=== PATIENT | female | born 1980 | race Caucasian/White ===

== ENCOUNTER → 2018-07-27 | Outpatient (CLI) | payer MEDICARE, OTHER ==
--- NOTE | 2018-08-06 10:10 | MM ---
Reason for exam: screening (asymptomatic). History: Family history of breast cancer in 3 maternal aunts. MG 3D Screening Mammo W/Cad Bilateral CC and MLO view(s) were taken. The breast tissue is heterogeneously dense. This may lower the sensitivity of mammography. No discrete abnormality. No significant changes when compared with prior studies. ASSESSMENT: Negative, BI-RAD 1 RECOMMENDATION: Routine screening mammogram of both breasts in 1 year.
== END | disposition home or self-care (01) ==
LOC: RADMAMWWP 13:21
PROVIDERS: ATTEND Nurse Practitioner Women's Health
DX: Z12.31 Encounter for screening mammogram for malignant neoplasm of breast (principal); Z80.3 Family history of malignant neoplasm of breast
CPT/HCPCS: 77063; 77067

== ENCOUNTER 2019-06-24 10:47 | Emergency (ER) | payer MEDICARE, OTHER ==
--- NOTE | 2019-06-24 11:28 | ED ---
General Adult HPI - General Chief complaint: OB/Uterine Contractions Stated complaint: , bleeding Time Seen by Provider: 06/24/19 11:02 Source: patient, RN notes reviewed, old records reviewed Mode of arrival: ambulatory - History of Present Illness Initial comments: 38 yo female presents with lower abdominal pain and cramping in vaginal bleeding. She describes bleeding is mild spotting. No significant hemorrhage. Patient is . She had a positive urine test one week ago and a confirmed serum test by her primary care physician 4 days ago. She states her beta hCG level was 26 at this time. Patient is midline and very mild. Patient has past medical history of MS, no other chronic medical conditions. Previous pregnancies were vaginal deliveries with no complications. No fever. No dysuria. No nausea vomiting. - Related Data Allergies Allergy/AdvReac Type Severity Reaction Status Date / Time Sulfa (Sulfonamide Allergy Rash/Hives Verified 06/24/19 10:56 Antibiotics) Review of Systems ROS Statement: Those systems with pertinent positive or pertinent negative responses have been documented in the HPI. ROS Other: All systems not noted in ROS Statement are negative. Past Medical History Additional Past Medical History / Comment(s): MS History of Any Multi-Drug Resistant Organisms: None Reported Additional Past Surgical History / Comment(s): Lumpectomy left breats Past Psychological History: No Psychological Hx Reported Smoking Status: Never smoker Past Alcohol Use History: None Reported Past Drug Use History: None Reported General Exam General appearance: alert, in no apparent distress Head exam: Present: atraumatic, normocephalic Eye exam: Present: normal appearance, PERRL ENT exam: Present: normal exam Neck exam: Present: normal inspection. Absent: tenderness, meningismus Respiratory exam: Present: normal lung sounds bilaterally. Absent: respiratory distress, wheezes Cardiovascular Exam: Present: regular rate, normal rhythm GI/Abdominal exam: Present: soft. Absent: distended, tenderness, guarding, rebound, rigid Extremities exam: Present: normal inspection, normal capillary refill. Absent: pedal edema Neurological exam: Present: alert, oriented X3, CN II-XII intact. Absent: motor sensory deficit Psychiatric exam: Present: normal affect, normal mood Skin exam: Present: warm, dry, intact. Absent: cyanosis, diaphoretic Course Vital Signs 06/24/19 10:54 Temperature 98.2 F Pulse Rate 89 Respiratory 18 Rate Blood Pressure 115/66 O2 Sat by Pulse 99 Oximetry Medical Decision Making - Medical Decision Making 38-year-old female presenting with vaginal spotting and positive test. Patient is a positive.she has stable hemoglobin. She has a down trending. HCG according to history of previous 26 her hCG 2 days 20. Ultrasound shows a 0.3 cm cystic structure in the upper endometrium. This does not confirm intrauterine around patient will require close outpatient follow-up. She is likely having a miscarriage at this time but hCG levels will need to be followed as an outpatient. She will present with worsening or changing symptom s. She will take a vitamin. - Lab Data Result diagrams: 06/24/19 11:27 06/24/19 11:27 Lab Results 06/24/19 06/24/19 06/24/19 Range/Units 11:27 11:27 11:27 WBC 8.8 (3.8-10.6) k/uL RBC 3.97 (3.80-5.40) m/uL Hgb 12.0 (11.4-16.0) gm/dL Hct 37.0 (34.0-46.0) % MCV 93.1 (80.0-100.0) fL MCH 30.3 (25.0-35.0) pg MCHC 32.6 (31.0-37.0) g/dL RDW 13.3 (11.5-15.5) % Plt Count 283 (150-450) k/uL Neutrophils % 76 % Lymphocytes % 16 % Monocytes % 4 % Eosinophils % 1 % Basophils % 0 % Neutrophils # 6.7 (1.3-7.7) k/uL Lymphocytes # 1.4 (1.0-4.8) k/uL Monocytes # 0.4 (0-1.0) k/uL Eosinophils # 0.1 (0-0.7) k/uL Basophils # 0.0 (0-0.2) k/uL Sodium 141 (137-145) mmol/L Potassium 4.1 (3.5-5.1) mmol/L Chloride 105 (98-107) mmol/L Carbon Dioxide 26 (22-30) mmol/L Anion Gap 10 mmol/L BUN 16 (7-17) mg/dL Creatinine 0.66 (0.52-1.04) mg/dL Est GFR (CKD-EPI)AfAm >90 (>60 ml/min/1.73 sqM) Est GFR (CKD-EPI)NonAf >90 (>60 ml/min/1.73 sqM) Glucose 75 (74-99) mg/dL Calcium 9.1 (8.4-10.2) mg/dL Total Bilirubin 0.3 (0.2-1.3) mg/dL AST 20 (14-36) U/L ALT 16 (4-34) U/L Alkaline Phosphatase 48 (38-126) U/L Total Protein 7.2 (6.3-8.2) g/dL Albumin 4.3 (3.5-5.0) g/dL HCG, Quant 20.5 mIU/mL Urine Color Urine Appearance (Clear) Urine pH (5.0-8.0) Ur Specific Harper (1.001-1.035) Urine Protein (Negative) Urine Glucose (UA) (Negative) Urine Ketones (Negative) Urine Blood (Negative) Urine Nitrite (Negative) Urine Bilirubin (Negative) Urine Urobilinogen (<2.0) mg/dL Ur Leukocyte Esterase (Negative) Urine RBC (0-5) /hpf Urine WBC (0-5) /hpf Ur Squamous Epith Cells (0-4) /hpf Urine Bacteria (None) /hpf Urine Mucus (None) /hpf Blood Type A Positive Blood Type Recheck No Previous Record Bld Type Recheck Status [facility] ONLY 06/24/19 Range/Units 11:27 WBC (3.8-10.6) k/uL RBC (3.80-5.40) m/uL Hgb (11.4-16.0) gm/dL Hct (34.0-46.0) % MCV (80.0-100.0) fL MCH (25.0-35.0) pg MCHC (31.0-37.0) g/dL RDW (11.5-15.5) % Plt Count (150-450) k/uL Neutrophils % % Lymphocytes % % Monocytes % % Eosinophils % % Basophils % % Neutrophils # (1.3-7.7) k/uL Lymphocytes # (1.0-4.8) k/uL Monocytes # (0-1.0) k/uL Eosinophils # (0-0.7) k/uL Basophils # (0-0.2) k/uL Sodium (137-145) mmol/L Potassium (3.5-5.1) mmol/L Chloride (98-107) mmol/L Carbon Dioxide (22-30) mmol/L Anion Gap mmol/L BUN (7-17) mg/dL Creatinine (0.52-1.04) mg/dL Est GFR (CKD-EPI)AfAm (>60 ml/min/1.73 sqM) Est GFR (CKD-EPI)NonAf (>60 ml/min/1.73 sqM) Glucose (74-99) mg/dL Calcium (8.4-10.2) mg/dL Total Bilirubin (0.2-1.3) mg/dL AST (14-36) U/L ALT (4-34) U/L Alkaline Phosphatase (38-126) U/L Total Protein (6.3-8.2) g/dL Albumin (3.5-5.0) g/dL HCG, Quant mIU/mL Urine Color Yellow Urine Appearance Clear (Clear) Urine pH 5.0 (5.0-8.0) Ur Specific Harper 1.023 (1.001-1.035) Urine Protein Negative (Negative) Urine Glucose (UA) Negative (Negative) Urine Ketones Negative (Negative) Urine Blood Small H (Negative) Urine Nitrite Negative (Negative) Urine Bilirubin Negative (Negative) Urine Urobilinogen <2.0 (<2.0) mg/dL Ur Leukocyte Esterase Negative (Negative) Urine RBC 1 (0-5) /hpf Urine WBC 1 (0-5) /hpf Ur Squamous Epith Cells 4 (0-4) /hpf Urine Bacteria Rare H (None) /hpf Urine Mucus Rare H (None) /hpf Blood Type Blood Type Recheck Bld Type Recheck Status Disposition Clinical Impression: Threatened miscarriage, Disposition: HOME SELF-CARE Condition: Good Instructions (If sedation given, give patient instructions): Threatened Miscarriage (ED), (ED) Additional Instructions: please follow with primary care physician regarding repeat hCG levels. They state vitamins. Is patient prescribed a controlled substance at d/c from ED?: No Referrals: Luís Rosa Jr, DO [Primary Care Provider] - 1-2 days Chica Concepcion MD [STAFF PHYSICIAN] - 1-2 days Time of Disposition: 13:07
[2019-06-24 11:47] LABS: Basophils % (A) 0 %; Eosinophils # (A) 0.1 k/uL (0-0.7); Eosinophils % (A) 1 %; Lymphocytes # (A) 1.4 k/uL (1.0-4.8); Lymphocytes % (A) 16 %; MCH 30.3 pg (25.0-35.0); MCHC 32.6 g/dL (31.0-37.0); MCV 93.1 fL (80.0-100.0); Mean Platelet Volume 7.2; Monocytes # (A) 0.4 k/uL (0-1.0); Monocytes % (A) 4 %; Neutrophils # (A) 6.7 k/uL (1.3-7.7); Neutrophils % (A) 76 %; Platelet Count 283 k/uL (150-450); RBC 3.97 m/uL (3.80-5.40); RDW 13.3 % (11.5-15.5); WBC 8.8 k/uL (3.8-10.6)
[2019-06-24 11:49] LABS: Appearance,Urine Clear (Clear); Bacteria,Urine Rare /hpf; Bilirubin,Urine Negative (Negative); Blood,Urine Small (Negative); Color,Urine Yellow; Glucose,Urine (UA) Negative (Negative); Ketones,Urine Negative (Negative); Leukocyte Esterase,Urine Negative (Negative); Mucus,Urine Rare /hpf; Nitrite,Urine Negative (Negative); Protein,Urine Negative (Negative); RBC,Urine 1 /hpf (0-5); Specific Gravity,Urine 1.023 (1.001-1.035); Squamous Epithelial Cell,Urine 4 /hpf (0-4); Urobilinogen,Urine <2.0 mg/dL (<2.0); WBC,Urine 1 /hpf (0-5)
[2019-06-24 11:58] LABS: ALT 16 U/L (4-34); AST 20 U/L (14-36); African American GFR (CKD) >90 (>60 ml/min/1.73 sqM); Albumin 4.3 g/dL (3.5-5.0); Alkaline Phosphatase 48 U/L (38-126); Anion Gap 10 mmol/L; Blood Urea Nitrogen 16 mg/dL (7-17); Calcium 9.1 mg/dL (8.4-10.2); Carbon Dioxide 26 mmol/L (22-30); Chloride 105 mmol/L (98-107); Glucose 75 mg/dL (74-99); Non-African American GFR(CKD) >90 (>60 ml/min/1.73 sqM); Potassium 4.1 mmol/L (3.5-5.1); Sodium 141 mmol/L (137-145); Total Bilirubin 0.3 mg/dL (0.2-1.3); Total Protein 7.2 g/dL (6.3-8.2)
[2019-06-24 12:14] LABS: HCG,Quantitative Serum 20.5 mIU/mL
--- NOTE | 2019-06-24 12:58 | US ---
EXAMINATION TYPE: Transabdominal DATE OF EXAM: 06/24/2019 12:30 PM COMPARISON: NONE CLINICAL HISTORY: pelvic pain in . Vaginal spotting after lifting heavy pails of water/Patie nt denies pain at time of US; EXAM PERFORMED: Transvaginal (TV) and Transabdominal (TA) EXAM MEASUREMENTS: GESTATIONAL AGE / DATING Physician Established: Not yet established Dates by LMP: ( 4 weeks/3 days) EDC: 02/28/2020 Dates by First Scan: No previous. Dates by Current Scan for: Unable to date by today's study MATERNAL ANATOMY Uterus: 9.8 x 5.4 x 5.4cm Right Ovary: 2.3 x 2.4 x 1.6cm Left Ovary: 2.3 x 1.8 x 1.5cm Post CDS / Adnexa: wnl Presence of free fluid: no Presence of corpus luteal cyst: in left ovary 2 cystic structures are seen TA US Presence of subchorionic bleed: not seen GESTATION / SURVEY MSD: 0.3cm possible early gestational sac seen in upper endometrium and is too early to date by liliam jose's calculations Date of LMP: 05/24/2019 Beta HcG (if available): 20.5mIU/ml IMPRESSION: WE HAVE NOT IDENTIFIED INTRAUTERINE OR EXTRAUTERINE GESTATION. SHORT-TERM FOLLOW-UP +/- SERIAL BETA H CGS WOULD BE SUGGESTED.
[2019-06-24 13:39] VITALS: BP 121/78; PULSE 71; RESP 16; TEMP 97.9
== END 2019-06-24 13:38 | disposition home or self-care (01) ==
LOC: EC 10:47
DX: O20.0 Threatened abortion (principal); O99.351 Diseases of the nervous system complicating pregnancy, first trimester; G35 Multiple sclerosis; Z88.2 Allergy status to sulfonamides; Z3A.01 Less than 8 weeks gestation of pregnancy
CPT/HCPCS: 36415; 76801; 76817; 80053; 81001; 84702; 85025; 86900; 86901; 99284

== ENCOUNTER → 2019-09-06 | Outpatient (CLI) | payer MEDICARE, OTHER | END | disposition home or self-care (01) | LOC: LABWHC1 10:44 | PROVIDERS: ATTEND Obstetrics & Gynecology | DX: O03.9 Complete or unspecified spontaneous abortion without complication (principal) | CPT/HCPCS: 36415; 84702 ==

== ENCOUNTER 2021-09-02 05:48 | Day surgery (SDC) | payer MEDICARE, OTHER ==
[2021-08-29 10:53] VITALS: BMI 32.9
[~2021-09-02 05:48] MED LIST: ACETAMINOPHEN TAB 500 MG TAB PO PRN; GABAPENTIN 300 MG CAP PO PRN; LACTATED RINGERS 1,000 ML IV SCH; LIDOCAINE 1% (10MG/ML) FOR IV START INTRADERMA PRN; MELOXICAM 7.5 MG TAB PO PRN; MIDAZOLAM 2 MG/2 ML VIAL IV PRN; ONDANSETRON 4 MG/2 ML VIAL IVP ONE; TRANEXAMIC ACID 1,000 MG in SODIUM CHLORIDE 0.9% 100 ML IVPB PRN
[2021-09-02] MEDS ORDERED: ceFAZolin 3,000 MG in SODIUM CHLORIDE 0.9% IRRIGATIO 3,000 ML IRRIGATION ONE (06:58)
[2021-09-02] MEDS ORDERED: HYDROmorphone 0.5 MG/0.5 ML SYRINGE IVP PRN (07:00)
[2021-09-02] MEDS ORDERED: ROPIVACAINE 5 MG/ML 30 ML VIAL MISCELLANE ONE ×2 (07:25→08:05)
--- NOTE | 2021-09-02 08:15 | P.OP ---
Date of Procedure: 09/02/21 Preoperative Diagnosis: Severe Osteoarthritis right hip Postoperative Diagnosis: Severe osteoarthritis right hip Procedure(s) Performed: Right total hip arthroplasty with a direct anterior approach Implants: [employer] Polarstem standard size 1 [employer] R3, 3 hole hemispherical acetabular shell, 48 mm [employer] Reflection 6.5 mm cancellus screw, 20 mm 2 [employer] R3, XLPE 20 acetabular liner [employer]hew Oxinium femoral head 32 m, -3 All components were press-fit. The articulation is Oxinium on polyethylene. Anesthesia: GETA Surgeon: Yobani Kauffman Last Marker #1: Mia Kamara Estimated Blood Loss (ml): 300 Pathology: other (Femoral head) Condition: stable Disposition: PACU Indications for Procedure: After failure of conservative treatment we discussed the surgical and nonsurgical treatment options at length. Patient wishes to proceed with a total hip arthroplasty with a direct anterior approach. Complications specific to this procedure were discussed at length, including but not limited to infection, leg length discrepancy, dislocation, nerve injury, and fracture. Covid-19 was also discussed at length with the patient, and they are aware of the current policies and procedures. The patient was given the option of delaying surgery, but they elect to proceed knowing these risks. Patient is aware of all these complications and informed consent was obtained Operative Findings: The operative findings are consistent with severe osteoarthritis of the right hip Description of Procedure: Patient was seen and evaluated in the preoperative area and the consent was reviewed. The operative site was marked with a skin marker. The patient was then brought to the operating room and given preoperative antibiotics intravenously. 1 g of Tranexamic acid was also given intravenously. A general anesthetic was administered by the anesthesia department. The patient was then placed on the [place] table with the bony prominences well-padded. The hip area was then prepped with a ChloraPrep solution and draped in the usual sterile fashion. A universal timeout was then performed, which confirmed the patient's name, surgical site, ALLERGIES, and procedure being performed on the consent. Next the incision site was located at 1 cm distal and 2 cm lateral to the anterior superior iliac spine. The skin and subcutaneous tissues were sharply incised. Incision was carefully dissected down to the fascia overlying the tensor fascia david muscle. This fascia was then incised in line with the incision. Care was taken to stay laterally in order to avoid injuring the lateral femoral cutaneous nerve. Next, using blunt finger dissection, the tensor fascia david muscle was dissected off its investing fascia. The muscle was then carefully retracted laterally with a cobra retractor over the lateral neck of the femur. Next, the circumflex vessels were identified and cauterized using the AquaMantis device. The anterior hip capsule was then exposed. The capsule was then opened and an inverted T fashion. Cobra retractors were then placed intracapsularly. The retractors were maintained intracapsular throughout the procedure. The proximal femur was then visualized. Fluoroscopic x-rays were then taken in order to evaluate the preoperative leg lengths. A small amount of traction was placed on the leg. The femoral neck was then osteotomized at the appropriate level above the lesser trochanter. A small wedge of bone was then removed from the remaining femoral head. Next, using a corkscrew the femoral head was removed from the acetabulum. On gross visual inspection, the femoral head had complete loss of articular cartilage and multiple periarticular osteophytes. The femoral head was then measured. Attention was then turned to the acetabulum. The acetabulum was exposed and any remaining labrum was excised. Sequential reaming of the acetabulum was performed using fluoroscopic guidance until there was a good bed of bleeding cancellus bone. When the appropriate size was reached, a trial was then placed. The position and fit of the trial was checked with fluoroscopy. The trial was then removed. Then, using fluoroscopic guidance, the final implant was impacted at 20 of anteversion and 40 of abduction, and fully seated in the acetabulum. 2 screws were then placed in the acetabulum. Again fluoroscopy was used to check position of the screws. Next, the liner was then impacted, with a 20 elevated liner located in the anterior superior quadrant. Component locking was confirmed. Attention was then directed to the femur. With the aid of the [place] table, the femur was externally rotated to approximately 130, extended, and adducted under the opposite leg. A side hook was then placed under the proximal femur, and the side hook elevator was used to elevate the proximal femur while releasing the capsule. Retractors were then placed. A capsular release was performed, as w ell as a release of the conjoined tendon, which afforded excellent visualization of the proximal femur. Next, a box osteotome was used to lateralize the proximal femur. A hand turner was then used to locate the femoral canal. Sequential broaching was then performed with appropriate size which afforded excellent fixation in the proximal femur. A trial was then placed with appropriate head and neck, and the hip was gently reduced with the aid of the [place] table. Fluoroscopy was then used to check position of the components, as well as to ensure equal leg lengths. The hip was then gently dislocated and the trials were then removed. Final implants were then impacted and the hip was again reduced. Final fluoroscopic x-rays confirmed that the components were in anatomic position, as well as equal leg lengths. The hip was also taken through range of motion, and found to be stable. The hip was then copiously irrigated with antibiotic solution with pulsatile lavage. The hip was then irrigated with Irrisept solution. The soft tissues were then injected with a ropivacaine solution. A second dose of 1 g of Tranexamic acid was also given intravenously. Any blood collected by [employer] was then returned to the patient at this time. The fascia was then closed with 2-0 strata fix suture. The subcutaneous tissue was closed with 3-0 Vicryl. The skin was closed with 4-0 nylon suture. The skin was then closed with Exofin skin glue. After the glue and dried, and Optifoam silver impregnated dressing was applied. The patient was then transferred to the recovery room in stable condition. The school psychologist assistant YOSEPH Woodall was required due to the complexity of surgery, and the need for skilled surgical manager for positioning, draping, exposure, retraction, and closure of the wound.
[2021-09-02] MEDS ORDERED: HYDROmorphone 0.2 MG/1 ML SYRINGE IVP PRN (08:41)
[2021-09-02] MEDS ORDERED: HYDROmorphone 1 MG/ML 1 ML SYRINGE IVP PRN ×2 (08:41)
[2021-09-02] MEDS ORDERED: ONDANSETRON 4 MG/2 ML VIAL IVP PRN (08:41)
[2021-09-02] MEDS ORDERED: hydrOXYzine pamoate 25 MG CAP PO PRN (08:41)
[2021-09-02] MEDS ORDERED: NALOXONE 0.4 MG/ML 1 ML VIAL IV PRN (08:41)
[2021-09-02] MEDS ORDERED: diazePAM 5 MG TAB PO PRN (08:41)
[2021-09-02] MEDS ORDERED: MAGNESIUM HYDROXIDE 2,400 MG/10 ML CUP PO PRN (08:41)
[2021-09-02] MEDS ORDERED: HYDROcodone/APAP 7.5-325MG 1 EACH TAB PO PRN ×2 (08:44)
[2021-09-02] MEDS ORDERED: SODIUM CHLORIDE 0.9% 1,000 ML IV SCH (08:45)
[2021-09-02 08:52] VITALS: TEMP 96.9
--- NOTE | 2021-09-02 09:07 | XR ---
EXAMINATION TYPE: XR Hip Limited RT, FL guidance operating room DATE OF EXAM: 09/02/2021 Comparison: None Clinical History: 40-year-old female Rt Hip-Ant Findings: Intraoperative fluoroscopy during anterior right hip replacement. Real-time fluoroscopy was provided to the surgeon. 2 images are saved. FLUOROSCOPY Fluoroscopy time of 53 seconds was used during anterior right hip replacement. 2 image/s document/s the procedure. Impression: Intraoperative fluoroscopy as above.
[2021-09-02] MEDS ORDERED: HYDROmorphone 0.5 MG/0.5 ML SYRINGE IVP ONE (09:12)
[2021-09-02] MEDS ORDERED: diphenhydrAMINE 50 MG/ML 1 ML VIAL IVP ONE (09:16)
--- NOTE | 2021-09-02 09:25 | XR ---
EXAMINATION TYPE: XR Hip Limited RT, one view DATE OF EXAM: 09/02/2021 Comparison: None Clinical History: 40-year-old female Status post hip surgery, assess surgical alignment Findings: Single image demonstrates placement of right total thoracoplasty. The acetabular cup and femoral stem components of prosthesis appear well seated. There is some cortical undulation along the lateral [place] of the proximal femoral shaft along the subtrochanteric region that is probably projectional but can be reassessed at a follow-up dedicated 2 views when patient able. Scattered soft tissue air relat ed to recent operation. Alignment grossly anatomic. Impression: 1. Status post right hip total arthroplasty. 2. Slight cortical undulation along the lateral margin of the proximal femoral shaft in the subtrocha nteric region probably projectional. Dedicated 2 views of the right hip can be performed to further a ssess if clinically indicated when patient able.
[2021-09-02] MEDS ORDERED: fentaNYL (PF) 50 MCG/ML 2 ML AMP IV ONE ×3 (09:56→10:14)
[2021-09-02] MEDS ORDERED: ONDANSETRON 4 MG/2 ML VIAL IVP ONE (10:00)
[2021-09-02] MEDS ORDERED: HYDROcodone/APAP 7.5-325MG 1 EACH TAB PO ONE (11:35)
[2021-09-02] MEDS ORDERED: LACTATED RINGERS 1,000 ML IV ONE (12:02)
[2021-09-02 12:43] VITALS: RESP 20
[2021-09-02 14:06] VITALS: BP 106/71; PULSE 86
[2021-09-02] MEDS ORDERED: SENNOSIDES-DOCUSATE SODIUM 1 EACH TAB PO SCH (21:00)
[2021-09-03] MEDS ORDERED: MELOXICAM 7.5 MG TAB PO SCH (09:00)
== END 2021-09-02 15:07 | disposition home health service (06) ==
LOC: OR 05:48
PROVIDERS: ATTEND Orthopaedic Surgery
DX: M16.11 Unilateral primary osteoarthritis, right hip (principal); J98.4 Other disorders of lung; G35 Multiple sclerosis; J45.909 Unspecified asthma, uncomplicated; F41.9 Anxiety disorder, unspecified; Z79.891 Long term (current) use of opiate analgesic; Z20.822 Contact with and (suspected) exposure to COVID-19; Z79.899 Other long term (current) drug therapy; Z88.2 Allergy status to sulfonamides; Z98.890 Other specified postprocedural states; Z88.8 Allergy status to other drugs, medicaments and biological substances
CPT/HCPCS: 97110; 97161; 81025; 86900; 86901; 86850; 88300; 87635; 73501; 27130; C1776; J2250; J1200; J0690 ×2; J2405; J3010; J1170 ×2; J2795

== ENCOUNTER 2021-09-03 17:55 | Observation (INO) | payer MEDICARE, OTHER ==
[2021-09-03] MEDS ORDERED: ASPIRIN 81 MG PO STA (18:23)
[2021-09-03] MEDS ORDERED: NITROGLYCERIN OINT 1 INCH/GM PACKET TOPICAL STA (18:32)
--- NOTE | 2021-09-03 18:35 | ED ---
General Adult HPI - General Chief complaint: Chest Pain Stated complaint: post hip surgery, chest pain Time Seen by Provider: 09/03/21 18:22 Source: patient, RN notes reviewed, old records reviewed Mode of arrival: EMS Limitations: no limitations - History of Present Illness Initial comments: Patient is a pleasant 40-year-old female presenting to the emergency Department with chest discomfort. Patient was standing with sudden chest pressure rated 7 or 8/10. Discomfort is sternal without radiation. Discomfort has improved and currently is only 3 or 4/10. No associated diaphoresis or dyspnea. Patient has been a little bit nauseated. Patient did have right hip surgery just yesterday. No significant calf pain or swelling. Patient denies history of similar type discomfort previously. - Related Data Home Medications Medication Instructions Recorded Confirmed Albuterol Sulfate [Proventil Hfa] 2 puff INHALATION RT-Q4H PRN 08/29/21 09/03/21 Ergocalciferol [Vitamin D2 (1250 1,250 mcg PO WE 08/29/21 09/03/21 Mcg = 56464 Iu)] Ibuprofen [Motrin] 800 mg PO Q8H PRN 08/29/21 09/03/21 L.acidoph,Paracasei, B.lactis 1 cap PO DAILY 08/29/21 09/03/21 [Probiotic] Previous Rx's Medication Instructions Recorded Aspirin 325 mg PO BID #60 tab 09/02/21 Gabapentin 300 mg PO BID 5 Days #10 cap 09/02/21 HYDROcodone/APAP 7.5-325MG [[place] 1 - 2 tab PO Q6H PRN #32 tab 09/02/21 7.5-325] Ondansetron Odt [Zofran Odt] 1 tab PO Q8HR PRN #10 tab 09/02/21 Sennosides [Senokot] 2 tab PO DAILY PRN #60 tablet 09/02/21 Allergies Allergy/AdvReac Type Severity Reaction Status Date / Time methylprednisolone Allergy Itching Verified 09/03/21 18:48 [From Solu-Medrol] Sulfa (Sulfonamide Allergy Rash/Hives Verified 09/03/21 18:48 Antibiotics) Review of Systems ROS Statement: Those systems with pertinent positive or pertinent negative responses have been documented in the HPI. ROS Other: All systems not noted in ROS Statement are negative. Constitutional: Denies: fever Eyes: Denies: eye pain ENT: Denies: ear pain Respiratory: Denies: cough Cardiovascular: Reports: chest pain Endocrine: Denies: fatigue Gastrointestinal: Denies: abdominal pain Genitourinary: Denies: dysuria Musculoskeletal: Denies: back pain Skin: Denies: rash Neurological: Denies: weakness Past Medical History Past Medical History: Asthma Additional Past Medical History / Comment(s): MS, arthritis History of Any Multi-Drug Resistant Organisms: None Reported Past Surgical History: Joint Replacement Additional Past Surgical History / Comment(s): Lumpectomy left breats Past Psychological History: No Psychological Hx Reported Smoking Status: Never smoker Past Alcohol Use History: Rare Past Drug Use History: Marijuana General Exam Limitations: no limitations General appearance: alert, in no apparent distress Head exam: Present: normocephalic Eye exam: Present: normal appearance Neck exam: Present: normal inspection Respiratory exam: Present: normal lung sounds bilaterally. Absent: chest wall tenderness Cardiovascular Exam: Present: regular rate, normal rhythm Expanded Peripheral pulses: 2+: Radial (R), Radial (L), Posterior Tibialis (R), Posterior Tibialis (L), Dorsalis Pedis (R), Dorsalis Pedis (L) GI/Abdominal exam: Present: soft. Absent: tenderness Extremities exam: Present: normal inspection. Absent: pedal edema, calf tenderness Neurological exam: Present: alert Psychiatric exam: Present: normal affect, normal mood Skin exam: Present: normal color Course Vital Signs 09/03/21 09/03/21 09/03/21 18:05 18:42 19:27 Temperature 98.7 F Pulse Rate 89 99 93 Respiratory 18 18 18 Rate Blood Pressure 116/72 108/67 100/47 O2 Sat by Pulse 100 93 L 100 Oximetry 09/03/21 20:21 Temperature Pulse Rate 108 H Respiratory 18 Rate Blood Pressure 114/62 O2 Sat by Pulse 97 Oximetry - Reevaluation(s) Reevaluation #1: 09/03/21 18:35 Previous EKG reviewed. EKG Findings - EKG Comments: EKG Findings:: Sinus rhythm with rate of 91. [place] 136. QRS 83. QT 363. QTc 412. Normal axis. Normal QRS. Inferior T wave inversion. Medical Decision Making - Medical Decision Making Patient reevaluated and updated, specifically regarding need for follow-up for nodules as well. Case discussed with Dr. Ricketts, who will admit, Dr. March. Cardiology will be evaluated and need to review EKG. - Lab Data Result diagrams: 09/03/21 18:35 09/03/21 18:35 Lab Results 09/03/21 09/03/21 09/03/21 Range/Units 18:35 18:35 18:35 WBC 14.3 H (3.8-10.6) k/uL RBC 3.10 L (3.80-5.40) m/uL Hgb 9.8 L (11.4-16.0) gm/dL Hct 30.3 L (34.0-46.0) % MCV 97.6 (80.0-100.0) fL MCH 31.6 (25.0-35.0) pg MCHC 32.4 (31.0-37.0) g/dL RDW 14.0 (11.5-15.5) % Plt Count 283 (150-450) k/uL MPV 7.1 Neutrophils % 76 % Lymphocytes % 15 % Monocytes % 6 % Eosinophils % 1 % Basophils % 0 % Neutrophils # 10.9 H (1.3-7.7) k/uL Lymphocytes # 2.1 (1.0-4.8) k/uL Monocytes # 0.8 (0-1.0) k/uL Eosinophils # 0.2 (0-0.7) k/uL Basophils # 0.0 (0-0.2) k/uL PT 10.5 (9.0-12.0) sec INR 1.0 (<1.2) APTT 23.4 (22.0-30.0) sec D-Dimer 1.00 H (<0.60) mg/L FEU Sodium 134 L (137-145) mmol/L Potassium 3.8 (3.5-5.1) mmol/L Chloride 103 (98-107) mmol/L Carbon Dioxide 24 (22-30) mmol/L Anion Gap 7 mmol/L BUN 8 (7-17) mg/dL Creatinine 0.47 L (0.52-1.04) mg/dL Est GFR (CKD-EPI)AfAm >90 (>60 ml/min/1.73 sqM) Est GFR (CKD-EPI)NonAf >90 (>60 ml/min/1.73 sqM) Glucose 101 H (74-99) mg/dL Calcium 8.4 (8.4-10.2) mg/dL Magnesium 2.0 (1.6-2.3) mg/dL Total Bilirubin 0.4 (0.2-1.3) mg/dL AST 46 H (14-36) U/L ALT 20 (4-34) U/L Alkaline Phosphatase 59 (38-126) U/L Troponin I (0.000-0.034) ng/mL Total Protein 6.7 (6.3-8.2) g/dL Albumin 3.8 (3.5-5.0) g/dL 09/03/21 Range/Units 18:35 WBC (3.8-10.6) k/uL RBC (3.80-5.40) m/uL Hgb (11.4-16.0) gm/dL Hct (34.0-46.0) % MCV (80.0-100.0) fL MCH (25.0-35.0) pg MCHC (31.0-37.0) g/dL RDW (11.5-15.5) % Plt Count (150-450) k/uL MPV Neutrophils % % Lymphocytes % % Monocytes % % Eosinophils % % Basophils % % Neutrophils # (1.3-7.7) k/uL Lymphocytes # (1.0-4.8) k/uL Monocytes # (0-1.0) k/uL Eosinophils # (0-0.7) k/uL Basophils # (0-0.2) k/uL PT (9.0-12.0) sec INR (<1.2) APTT (22.0-30.0) sec D-Dimer (<0.60) mg/L FEU Sodium (137-145) mmol/L Potassium (3.5-5.1) mmol/L Chloride (98-107) mmol/L Carbon Dioxide (22-30) mmol/L Anion Gap mmol/L BUN (7-17) mg/dL Creatinine (0.52-1.04) mg/dL Est GFR (CKD-EPI)AfAm (>60 ml/min/1.73 sqM) Est GFR (CKD-EPI)NonAf (>60 ml/min/1.73 sqM) Glucose (74-99) mg/dL Calcium (8.4-10.2) mg/dL Magnesium (1.6-2.3) mg/dL Total Bilirubin (0.2-1.3) mg/dL AST (14-36) U/L ALT (4-34) U/L Alkaline Phosphatase (38-126) U/L Troponin I <0.012 (0.000-0.034) ng/mL Total Protein (6.3-8.2) g/dL Albumin (3.5-5.0) g/dL - Radiology Data Radiology results: report reviewed (Computed tomography scan negative for pulmonary embolism. Nodules present.), image reviewed (Chest x-ray shows no acute process) Disposition Clinical Impression: Chest pain Disposition: ADMITTED IP TO THIS HOSP Is patient prescribed a controlled substance at d/c from ED?: No Referrals: Luís Rosa Jr, [Primary Care Provider] - 1-2 days Decision Time: 20:44
[2021-09-03 18:51] LABS: Basophils % (A) 0 %; Eosinophils # (A) 0.2 k/uL (0-0.7); Eosinophils % (A) 1 %; HCT 30.3 % (34.0-46.0); HGB 9.8 gm/dL (11.4-16.0); Lymphocytes # (A) 2.1 k/uL (1.0-4.8); Lymphocytes % (A) 15 %; MCH 31.6 pg (25.0-35.0); MCHC 32.4 g/dL (31.0-37.0); MCV 97.6 fL (80.0-100.0); Mean Platelet Volume 7.1; Monocytes # (A) 0.8 k/uL (0-1.0); Monocytes % (A) 6 %; Neutrophils # (A) 10.9 k/uL (1.3-7.7); Neutrophils % (A) 76 %; Platelet Count 283 k/uL (150-450); WBC 14.3 k/uL (3.8-10.6)
[2021-09-03 19:03] LABS: Partial Thromboplastin Time 23.4 sec (22.0-30.0); Prothrombin Time 10.5 sec (9.0-12.0)
--- NOTE | 2021-09-03 19:04 | XR ---
EXAMINATION TYPE: XR chest 2V DATE OF EXAM: 09/03/2021 COMPARISON: NONE HISTORY: Chest pain TECHNIQUE: Frontal and lateral views of the chest are obtained. FINDINGS: There is no focal air space opacity, pleural effusion, or pneumothorax seen. The cardiac silhouette size is within normal limits. The osseous structures are intact. IMPRESSION: No acute cardiopulmonary process.
[2021-09-03 19:07] LABS: ALT 20 U/L (4-34); AST 46 U/L (14-36); African American GFR (CKD) >90 (>60 ml/min/1.73 sqM); Albumin 3.8 g/dL (3.5-5.0); Alkaline Phosphatase 59 U/L (38-126); Anion Gap 7 mmol/L; Blood Urea Nitrogen 8 mg/dL (7-17); Calcium 8.4 mg/dL (8.4-10.2); Carbon Dioxide 24 mmol/L (22-30); Chloride 103 mmol/L (98-107); Glucose 101 mg/dL (74-99); Non-African American GFR(CKD) >90 (>60 ml/min/1.73 sqM); Potassium 3.8 mmol/L (3.5-5.1); Sodium 134 mmol/L (137-145); Total Bilirubin 0.4 mg/dL (0.2-1.3); Total Protein 6.7 g/dL (6.3-8.2)
--- NOTE | 2021-09-03 20:04 | CT ---
EXAMINATION TYPE: CT angio chest DATE OF EXAM: 09/03/2021 7:45 PM COMPARISON: Same-day radiograph. HISTORY: h/o chest post hip replacement sx, r/o PE CT DLP: 403.1 mGycm Automated exposure control for dose reduction was used. CONTRAST: CTA scan of the thorax is performed with IV Contrast, patient injected with 100 mL of Isovue 370, pul monary embolism protocol. MIP images are created and reviewed. FINDINGS: LUNGS: The lungs are grossly clear. No significant infiltrate. There is a 5 mm right lower lobe nodul e. Also 3 mm right middle lobe nodule. There is no pleural effusion or pneumothorax seen. The trac heobronchial tree is patent. MEDIASTINUM: There is satisfactory enhancement of the pulmonary artery and its branches, there is no CT evidence for pulmonary embolism. There are no greater than 1 cm hilar or mediastinal lymph nodes. No pericardial effusion is seen. OTHER: No additional significant abnormality is seen. IMPRESSION: NO ACUTE PE OR CARDIOPULMONARY ABNORMALITY. INCIDENTAL FEW SMALL RIGHT PULMONARY NODULES OF UNKNOWN CHRONICITY. RECOMMEND FOLLOW-UP.
[2021-09-03] MEDS ORDERED: NITROGLYCERIN SL TABS 0.4 MG TAB SUBLINGUAL PRN (20:42)
[2021-09-03] MEDS: MORPHINE SULFATE 4 MG/ML SYRINGE IVP PRN (21:21)
[2021-09-04] MEDS: MORPHINE SULFATE 4 MG/ML SYRINGE IVP PRN ×4 (00:30→13:17)
[2021-09-04] MEDS: NITROGLYCERIN OINT 1 INCH/GM PACKET TOPICAL SCH ×3 (00:31→12:31)
[2021-09-04 06:13] VITALS: RESP 16
[2021-09-04 07:53] VITALS: BP 96/64; TEMP 98.5
[2021-09-04] MEDS ORDERED: ASPIRIN 325 MG TAB PO SCH (09:00)
--- NOTE | 2021-09-04 09:18 | P.CRDCN ---
History of Present Illness Consult date: 09/04/21 History of present illness: History of Present Illness: The patient is a 40-year-old female with no prior documented history of cardiac disease who underwent right total hip arthroplasty on Wednesday and yesterday while at home had an episode of chest discomfort, persisted and came into the emergency room. She's feeling better today. The discomfort had no radiation. She had no associated dizziness or palpitations or syncope. She had recent edema prior to her surgery. She has no history of PND or orthopnea. She has no prior cardiac history. She underwent an MPI many years ago in [place] that was unremarkable. She has no history of hypertension, hyperlipidemia or diabetes. She is a nonsmoker. Her CT angiogram showed no evidence of pulmonary embolism. She has been in sinus mechanism since admission. She had mild dyspnea on exertion prior to her surgery that she attributed to her weight gain. Review of Systems: Respiratory: Symptoms of dyspnea on exertion GI: She had nausea and vomiting today. No history of peptic ulcer disease. No recent GI bleed. : No hematuria or dysuria. Nervous System: [No stroke, she has a prior history of seizure but not recently. Physical Examination: 40-year-old female, alert oriented no apparent distress, blood pressure 103/60 with a heart rate in the 90s Head: Normocephalic. Eyes: Sclerae nonicteric. Neck: Good carotid upstroke, no bruit, no jugular venous distention. Lungs: Clear to auscultation. Heart: Regular rate and rhythm, S1-S2, no S3, no rub. No murmur. Abdomen: Soft nontender, positive bowel sounds no organomegaly. Extremities: Trace to 1+ edema bilaterally, intact distal pulses Labs: EKG shows sinus mechanism with nonspecific ST-T wave changes. Troponin less than 0.012 FOR 3 samples, BUN and creatinine and 0.47. Hemoglobin of 9.8 Impression: 1. Chest discomfort of unclear etiology, probable noncardiac. No evidence of acute coronary syndrome 2. Status post recent right total hip arthroplasty, no evidence of pulmonary embolism 3. Prior history of seizure Plan: 1. Stop Nitropaste 2. Obtain an echocardiogram with Doppler 3. If no segmental wall motion abnormality no further cardiac workup will be needed at this time 4. Depending on her progress further recommendations will be made 5. Thank you for this consult we will follow with you. Past Medical History Past Medical History: Asthma Additional Past Medical History / Comment(s): MS, arthritis History of Any Multi-Drug Resistant Organisms: None Reported Past Surgical History: Joint Replacement Additional Past Surgical History / Comment(s): Lumpectomy left breats Past Psychological History: No Psychological Hx Reported Smoking Status: Never smoker Past Alcohol Use History: Rare Past Drug Use History: Marijuana Medications and Allergies Home Medications Medication Instructions Recorded Confirmed Type Albuterol Sulfate [Proventil Hfa] 2 puff INHALATION RT-Q4H PRN 08/29/21 09/03/21 History Ergocalciferol [Vitamin D2 (1250 1,250 mcg PO WE 08/29/21 09/03/21 History Mcg = 55244 Iu)] Ibuprofen [Motrin] 800 mg PO Q8H PRN 08/29/21 09/03/21 History L.acidoph,Paracasei, B.lactis 1 cap PO DAILY 08/29/21 09/03/21 History [Probiotic] Aspirin 325 mg PO BID #60 tab 09/02/21 09/03/21 Rx Gabapentin 300 mg PO BID 5 Days #10 cap 09/02/21 09/03/21 Rx HYDROcodone/APAP 7.5-325MG [[place] 1 - 2 tab PO Q6H PRN #32 tab 09/02/21 09/03/21 Rx 7.5-325] Ondansetron Odt [Zofran Odt] 1 tab PO Q8HR PRN #10 tab 09/02/21 09/03/21 Rx Sennosides [Senokot] 2 tab PO DAILY PRN #60 tablet 09/02/21 09/03/21 Rx Allergies Allergy/AdvReac Type Severity Reaction Status Date / Time methylprednisolone Allergy Itching Verified 09/03/21 18:48 [From Solu-Medrol] Sulfa (Sulfonamide Allergy Rash/Hives Verified 09/03/21 18:48 Antibiotics) Physical Exam Vitals: Vital Signs Temp Pulse Pulse Resp BP BP Pulse Ox 09/04/21 07:00 98.5 F 96 16 96/64 96 09/04/21 06:11 97 16 103/67 99 09/04/21 00:39 90 18 102/67 100 09/03/21 22:49 88 16 95/56 100 09/03/21 21:26 76 18 147/76 97 02/23/22 20:21 108 H 18 114/62 97 09/03/21 19:27 93 18 100/47 100 09/03/21 18:42 99 18 108/67 93 L 09/03/21 18:05 98.7 F 89 18 116/72 100 Intake and Output 09/03/21 09/04/21 09/04/21 22:59 06:59 14:59 Other: # Voids 1 Weight 83.915 kg Results 09/03/21 18:35 09/03/21 18:35 Cardiac Enzymes 09/03/21 09/03/21 09/03/21 Range/Units 18:35 18:35 21:32 AST 46 H (14-36) U/L Troponin I <0.012 <0.012 (0.000-0.034) ng/mL 09/04/21 Range/Units 00:25 AST (14-36) U/L Troponin I <0.012 (0.000-0.034) ng/mL Coagulation 09/03/21 Range/Units 18:35 PT 10.5 (9.0-12.0) sec APTT 23.4 (22.0-30.0) sec CBC 09/03/21 Range/Units 18:35 WBC 14.3 H (3.8-10.6) k/uL RBC 3.10 L (3.80-5.40) m/uL Hgb 9.8 L (11.4-16.0) gm/dL Hct 30.3 L (34.0-46.0) % Plt Count 283 (150-450) k/uL Comprehensive Metabolic Panel 09/03/21 Range/Units 18:35 Sodium 134 L (137-145) mmol/L Potassium 3.8 (3.5-5.1) mmol/L Chloride 103 (98-107) mmol/L Carbon Dioxide 24 (22-30) mmol/L BUN 8 (7-17) mg/dL Creatinine 0.47 L (0.52-1.04) mg/dL Glucose 101 H (74-99) mg/dL Calcium 8.4 (8.4-10.2) mg/dL AST 46 H (14-36) U/L ALT 20 (4-34) U/L Alkaline Phosphatase 59 (38-126) U/L Total Protein 6.7 (6.3-8.2) g/dL Albumin 3.8 (3.5-5.0) g/dL Current Medications Generic Name Dose Route Start Last Admin Trade Name Freq PRN Reason Stop Dose Admin Aspirin 325 mg 09/05/21 09:00 Aspirin 325 Mg Tab PO DAILY SY Morphine Sulfate 4 mg 09/03/21 20:43 09/04/21 09:01 Morphine Sulfate 4 Mg/Ml Syringe IVP 4 mg Q4HR PRN Administration Pain Nitroglycerin 0.4 mg 09/03/21 20:42 Nitroglycerin Sl Tabs 0.4 Mg Tab SUBLINGUAL Q5M PRN Chest Pain Nitroglycerin 1 inch 09/04/21 00:00 09/04/21 05:01 Nitroglycerin Oint 1 Inch/Gm Packet TOPICAL 1 inch Q6HR [facility] Administration Intake and Output 09/03/21 09/04/21 09/04/21 22:59 06:59 14:59 Other: # Voids 1 Weight 83.915 kg 09/03/21 18:35 09/03/21 18:35
[2021-09-04 09:57] LABS: HDL Cholesterol 67.1 mg/dL (40.00-60.00); Triglycerides 49.8 mg/dL (0.00-149.00)
[2021-09-04 10:07] LABS: Chol/HDL Ratio 1.98 Ratio; LDL Cholesterol,Direct Reflex 56.5 mg/dL (0.00-129.00)
[2021-09-04 10:45] VITALS: PULSE 81
[2021-09-04] MEDS ORDERED: ALBUTEROL NEBULIZED 2.5 MG/3 ML INHALATION PRN (11:02)
[2021-09-04] MEDS ORDERED: SENNOSIDES 8.6 MG TAB PO PRN (11:02)
[2021-09-04] MEDS ORDERED: PANTOPRAZOLE 40 MG/10 ML VIAL IVP SCH (11:15)
--- NOTE | 2021-09-04 12:01 | ECHOF ---
Referral Reason:CP MEASUREMENTS -------- HEIGHT: 157.5 cm WEIGHT: 83.9 kg BP: 96/64 RVIDd: 2.6 cm (< 3.3) IVSd: 0.9 cm (0.6 - 1.1) LVIDd: 5.0 cm (3.9 - 5.3) LVPWd: 0.9 cm (0.6 - 1.1) IVSs: 1.4 cm LVIDs: 3.1 cm LVPWs: 1.4 cm LA Diam: 3.2 cm (2.7 - 3.8) LAESV Index (A-L): 28.98 ml/m Ao Diam: 2.9 cm (2.0 - 3.7) AV Cusp: 2.2 cm (1.5 - 2.6) MV EXCURSION: 17.918 mm (> 18.000) MV EF SLOPE: 112 mm/s (70 - 150) EPSS: 0.5 cm MV E Leroy: 1.32 m/s MV DecT: 243 ms MV A Leroy: 0.91 m/s MV E/A Ratio: 1.44 RAP: 5.00 mmHg RVSP: 31.76 mmHg FINDINGS -------- Sinus rhythm. This was a technically adequate study. The left ventricular size is normal. Left ventricular wall thickness is normal. Overall left vent ricular systolic function is normal with, an EF between 55 - 60 %. The diastolic filling pattern is normal for the age of the patient 12.97. The right ventricle is normal in size. Normal LA size by volume 22+/-6 ml/m2. The right atrium is normal in size. Interatrial and interventricular septum intact. The aortic valve is trileaflet, and appears structurally normal. No aortic stenosis or regurgitation. The mitral valve is normal. There is trace to mild mitral regurgitation. The tricuspid valve appears structurally normal. Mild tricuspid regurgitation present. Right vent ricular systolic pressure is normal at < 35 mmHg. Trace/mild (physiologic) pulmonic regurgitation. The aortic root size is normal. Normal inferior vena cava with normal inspiratory collapse consistent with estimated right atrial pre ssure of 5 mmHg. There is no pericardial effusion. CONCLUSIONS -------- 1. Left ventricular wall thickness is normal. 2. Overall left ventricular systolic function is normal with, an EF between 55 - 60 %. 3. The aortic valve is trileaflet, and appears structurally normal. No aortic stenosis or regurgitati on. 4. There is trace to mild mitral regurgitation. 5. Mild tricuspid regurgitation present. 6. Trace/mild (physiologic) pulmonic regurgitation. 7. There is no pericardial effusion. WEB OPERATIONS MANAGER: Karly Butler RDCS
--- NOTE | 2021-09-04 14:39 | P.HPIM ---
History of Present Illness H&P Date: 09/04/21 Chief Complaint: Midsternal chest pressure History and Physical and Discharge Summary: This is a 40-year-old female with past medical history of MS diagnosed in 2009, reports questionable MD 15 years ago-not documented, right total hip arthroplasty yesterday secondary to severe osteoarthritis presented to the ER with midsternal chest pressure, nonradiating while ambulating to kitchen, attempting sitting down with no relief-reports pressure worsened. Denies shortness of breath, diaphoresis. Denies syncope. Reported mild nausea, no emesis. Denies abdominal pain. Passing flatus. Ambulating with walker, tolerating exertion well. Chest x-ray reported no acute cardiopulmonary process, CTA reported no acute PE , incidental diffuse small right pulmonary nodules of unknown chronicity,EKG reported sinus with nonspecific ST-T wave changes-further review as per cardiology, troponins negative 3, Review of Systems ROS Statement: Those systems with pertinent positive or pertinent negative responses have been documented in the HPI. ROS Other: All systems not noted in ROS Statement are negative. Past Medical History Past Medical History: Asthma Additional Past Medical History / Comment(s): MS, arthritis History of Any Multi-Drug Resistant Organisms: None Reported Past Surgical History: Joint Replacement Additional Past Surgical History / Comment(s): Lumpectomy left breats Past Psychological History: No Psychological Hx Reported Smoking Status: Never smoker Past Alcohol Use History: Rare Past Drug Use History: Marijuana Medications and Allergies Home Medications Medication Instructions Recorded Confirmed Type Albuterol Sulfate [Proventil Hfa] 2 puff INHALATION RT-Q4H PRN 08/29/21 09/03/21 History Ergocalciferol [Vitamin D2 (1250 1,250 mcg PO WE 08/29/21 09/03/21 History Mcg = 33398 Iu)] Ibuprofen [Motrin] 800 mg PO Q8H PRN 08/29/21 09/03/21 History L.acidoph,Paracasei, B.lactis 1 cap PO DAILY 08/29/21 09/03/21 History [Probiotic] Aspirin 325 mg PO BID #60 tab 09/02/21 09/03/21 Rx Gabapentin 300 mg PO BID 5 Days #10 cap 09/02/21 09/03/21 Rx HYDROcodone/APAP 7.5-325MG [[place] 1 - 2 tab PO Q6H PRN #32 tab 09/02/21 09/03/21 Rx 7.5-325] Ondansetron Odt [Zofran ODT] 1 tab PO Q8HR PRN #10 tab 09/02/21 09/03/21 Rx Sennosides [Senokot] 2 tab PO DAILY PRN #60 tablet 09/02/21 09/03/21 Rx Pantoprazole Sodium [Protonix] 40 mg PO DAILY #30 tab 09/04/21 Rx Allergies Allergy/AdvReac Type Severity Reaction Status Date / Time methylprednisolone Allergy Itching Verified 09/03/21 18:48 [From Solu-Medrol] Sulfa (Sulfonamide Allergy Rash/Hives Verified 09/03/21 18:48 Antibiotics) Physical Exam Vitals: Vital Signs Temp Pulse Pulse Resp BP BP Pulse Ox 09/04/21 07:00 98.5 F 81 16 96/64 96 09/04/21 06:11 97 16 103/67 99 09/04/21 00:39 90 18 102/67 100 09/03/21 22:49 88 16 95/56 100 09/03/21 21:26 76 18 147/76 97 09/03/21 20:21 108 H 18 114/62 97 09/03/21 19:27 93 18 100/47 100 09/03/21 18:42 99 18 108/67 93 L 09/03/21 18:05 98.7 F 89 18 116/72 100 Intake and Output 09/03/21 09/04/21 09/04/21 22:59 06:59 14:59 Other: # Voids 1 Weight 83.915 kg PHYSICAL EXAM: VITAL SIGNS: [As above] GENERAL: Sitting up in bed, no acute distress oral mucosa moist HEENT: Conjunctivae normal. eyes normal. NECK: No JVD. No thyroid enlargement. No LNs CARDIOVASCULAR: S1, S2 regular.No murmur RESPIRATION: Breath sounds diminished in the bases. No rhonchi or crackles. No bronchial breathing. ABDOMEN: Soft, nontender . No guarding. no masses palpable. No ascites, No hepatosplenomegaly.Bowel sounds heard. EXTREMITIES: ANGELA hose on, trace edema. no calf tenderness, positive DP pulses PSYCHIATRY: Alert and oriented X3, mood and affect normal. NERVOUS SYSTEM: Cranial N 2-12 grossly normal. Moves all 4 limbs. Diffuse weakness No focal deficits. Strength and sensation grossly intact. Results CBC & Chem 7: 09/03/21 18:35 09/03/21 18:35 Labs: Abnormal Lab Results - Last 24 Hours (Table) 09/03/21 09/03/21 09/03/21 Range/Units 18:35 18:35 18:35 WBC 14.3 H (3.8-10.6) k/uL RBC 3.10 L (3.80-5.40) m/uL Hgb 9.8 L (11.4-16.0) gm/dL Hct 30.3 L (34.0-46.0) % Neutrophils # 10.9 H (1.3-7.7) k/uL D-Dimer 1.00 H (<0.60) mg/L FEU Sodium 134 L (137-145) mmol/L Creatinine 0.47 L (0.52-1.04) mg/dL Glucose 101 H (74-99) mg/dL AST 46 H (14-36) U/L HDL Cholesterol (40.00-60.00) mg/dL 09/04/21 Range/Units 05:14 WBC (3.8-10.6) k/uL RBC (3.80-5.40) m/uL Hgb (11.4-16.0) gm/dL Hct (34.0-46.0) % Neutrophils # (1.3-7.7) k/uL D-Dimer (<0.60) mg/L FEU Sodium (137-145) mmol/L Creatinine (0.52-1.04) mg/dL Glucose (74-99) mg/dL AST (14-36) U/L HDL Cholesterol 67.10 H (40.00-60.00) mg/dL Assessment and Plan Assessment: Chest pressure, etiology unclear, cardiology following Recent Right hip total arthroplasty yesterday, PE ruled out. Possible gastroesophageal reflux disease, possible gastritis in a patient on aspirin post orthopedic surgery. Incidental small right pulmonary nodules, further workup outpatient MS, history of Possible history of CAD, patient reports questionable MD 15 years ago Marijuana use Plan: Continue on current medication regime ,monitoring and symptomatic treatment. PPI added on for GI prophylaxis. Cardiology evaluated with recommendations noted and appreciated. Echo pending. Patient will be discharged home today pending echo results, final DC recommendations and clearance per cardiology. Patient will be discharged on PPI as she is on aspirin post orthopedic surgery. Discharge Medication List Albuterol Sulfate [Proventil Hfa] 2 puff INHALATION RT-Q4H PRN 08/29/21 [History] Ergocalciferol [Vitamin D2 (1250 Mcg = 61765 Iu)] 1,250 mcg PO WE 08/29/21 [History] Ibuprofen [Motrin] 800 mg PO Q8H PRN 08/29/21 [History] L.acidoph,Paracasei, B.lactis [Probiotic] 1 cap PO DAILY 08/29/21 [History] Aspirin 325 mg PO BID #60 tab 09/02/21 [Rx] Gabapentin 300 mg PO BID 5 Days #10 cap 09/02/21 [Rx] HYDROcodone/APAP 7.5-325MG [[place] 7.5-325] 1 - 2 tab PO Q6H PRN #32 tab 09/02/21 [Rx] Ondansetron Odt [Zofran ODT] 1 tab PO Q8HR PRN #10 tab 09/02/21 [Rx] Sennosides [Senokot] 2 tab PO DAILY PRN #60 tablet 09/02/21 [Rx] Pantoprazole Sodium [Protonix] 40 mg PO DAILY #30 tab 09/04/21 [Rx] The impression and plan of care has been dictated as directed. : I performed a history and examination of this patient, discussed the same with the dictator. I agree with the dictator's note ,documented as a scribe. Any additional findings or plans will be noted.
[2021-09-04] MEDS ORDERED: GABAPENTIN 300 MG CAP PO SCH (21:00)
[2021-09-05] MEDS ORDERED: ASPIRIN 325 MG TAB PO SCH (09:00)
== END 2021-09-04 14:07 | disposition home or self-care (01) ==
LOC: EC 17:55 → 6NMEDSUR 20:42 → 3SCARD 09-04 08:43
PROVIDERS: ADMIT Family Medicine; ATTEND Family Medicine
DX: R07.89 Other chest pain (principal); R11.0 Nausea; R06.09 Other forms of dyspnea; J45.909 Unspecified asthma, uncomplicated; M19.90 Unspecified osteoarthritis, unspecified site; R91.8 Other nonspecific abnormal finding of lung field; G35 Multiple sclerosis; I08.1 Rheumatic disorders of both mitral and tricuspid valves; Z20.822 Contact with and (suspected) exposure to COVID-19; Z88.8 Allergy status to other drugs, medicaments and biological substances; Z88.2 Allergy status to sulfonamides; Z96.641 Presence of right artificial hip joint; Z98.890 Other specified postprocedural states
CPT/HCPCS: 96376; 96374; 99285; 36415; 93005; 93306; 85379; 80061; 80053; 83735; 84484 ×2; 85025; 85610; 85730; 83721; 87635; 71046; 71275; G0378 ×3; J2270 ×2; Q9967

== ENCOUNTER → 2022-04-27 | Outpatient (CLI) | payer MEDICARE, OTHER ==
[2022-04-27 22:11] LABS: Chol/HDL Ratio 3.54 Ratio; LDL Cholesterol,Calculated 123.5 mg/dL (0.0-131.0)
== END | disposition home or self-care (01) ==
LOC: LABWHC1 12:25
PROVIDERS: ATTEND Psychiatry & Neurology Neurology
DX: E55.9 Vitamin D deficiency, unspecified (principal); E78.5 Hyperlipidemia, unspecified; D51.0 Vitamin B12 deficiency anemia due to intrinsic factor deficiency; R53.83 Other fatigue
CPT/HCPCS: 36415; 80061; 82306; 82607; 84439; 84443; 84481

== ENCOUNTER 2022-07-25 13:03 | Emergency (ER) | payer MEDICARE, OTHER ==
[2022-07-25 13:20] VITALS: TEMP 98.2
[2022-07-25] MEDS ORDERED: IPRATROPIUM-ALBUTEROL 3 ML NEB INHALATION STA (13:30)
--- NOTE | 2022-07-25 13:43 | ED ---
General Adult HPI - General Chief complaint: Shortness of Breath Stated complaint: SOB Time Seen by Provider: 07/25/22 13:22 Source: patient Mode of arrival: ambulatory Limitations: no limitations - History of Present Illness Initial comments: Patient is a 41-year-old female presenting with chief complaint of difficulty breathing. Patient states that she tested positive for Covid on 07/05/22. She states she has been using her inhaler and breathing treatments but states that she feels like she cannot take a full deep breath in. She also admits to lightheadedness. She admits to fatigue. She states that she also noticed a bump in the left axilla today while putting on her deodorant. It is painless. Patient denies any current fever, chills, vomiting, abdominal pain, chest pain, vision or hearing changes, neck pain or stiffness, syncope. - Related Data Home Medications Medication Instructions Recorded Confirmed Albuterol Sulfate [Proventil Hfa] 2 puff INHALATION RT-Q4H PRN 08/29/21 09/03/21 Ergocalciferol [Vitamin D2 (1250 1,250 mcg PO WE 08/29/21 09/03/21 Mcg = 87920 Iu)] Ibuprofen [Motrin] 800 mg PO Q8H PRN 08/29/21 09/03/21 L.acidoph,Paracasei, B.lactis 1 cap PO DAILY 08/29/21 09/03/21 [Probiotic] Previous Rx's Medication Instructions Recorded Aspirin 325 mg PO BID #60 tab 09/02/21 Gabapentin 300 mg PO BID 5 Days #10 cap 09/02/21 HYDROcodone/APAP 7.5-325MG [Orange 1 - 2 tab PO Q6H PRN #32 tab 09/02/21 7.5-325] Ondansetron Odt [Zofran ODT] 1 tab PO Q8HR PRN #10 tab 09/02/21 Sennosides [Senokot] 2 tab PO DAILY PRN #60 tablet 09/02/21 Pantoprazole Sodium [Protonix] 40 mg PO DAILY #30 tab 09/04/21 methylPREDNISolone Dose Pack 4 mg PO DIRECTED #1 packet 07/25/22 [Medrol Dose Pack] Allergies Allergy/AdvReac Type Severity Reaction Status Date / Time methylprednisolone Allergy Itching Verified 07/25/22 13:20 [From Solu-Medrol] Sulfa (Sulfonamide Allergy Rash/Hives Verified 07/25/22 13:20 Antibiotics) Review of Systems ROS Statement: Those systems with pertinent positive or pertinent negative responses have been documented in the HPI. ROS Other: All systems not noted in ROS Statement are negative. Past Medical History Past Medical History: Asthma Additional Past Medical History / Comment(s): MS, arthritis History of Any Multi-Drug Resistant Organisms: None Reported Past Surgical History: Joint Replacement Additional Past Surgical History / Comment(s): Lumpectomy left breats Past Psychological History: No Psychological Hx Reported Smoking Status: Never smoker Past Alcohol Use History: Rare Past Drug Use History: Marijuana General Exam Limitations: no limitations General appearance: alert, in no apparent distress Head exam: Present: atraumatic, normocephalic, normal inspection Eye exam: Present: normal appearance Neck exam: Present: normal inspection Respiratory exam: Present: wheezes. Absent: respiratory distress, rales, rhonchi, stridor Cardiovascular Exam: Present: regular rate, normal rhythm, normal heart sounds. Absent: systolic murmur, diastolic murmur, rubs, gallop, clicks Neurological exam: Present: alert, oriented X3, CN II-XII intact Psychiatric exam: Present: normal affect, normal mood Skin exam: Present: warm, dry, intact, normal color. Absent: rash Course Vital Signs 07/25/22 07/25/22 07/25/22 13:15 14:23 14:31 Temperature 98.2 F Pulse Rate 69 66 68 Respiratory 18 16 18 Rate Blood Pressure 114/74 O2 Sat by Pulse 100 Oximetry 07/25/22 07/25/22 15:30 17:37 Temperature 98.2 F Pulse Rate 65 60 Respiratory 16 16 Rate Blood Pressure 123/73 120/70 O2 Sat by Pulse 100 100 Oximetry EKG Findings - EKG Comments: EKG Findings:: Sinus rhythm. Ventricular rate 65. MO interval 142. QRS 84. QT 418. QTC 429. T-wave inversion in leads 3 and aVF that are consistent with previous EKGs. EKG interpreted by myself as well as my attending Medical Decision Making - Medical Decision Making Was pt. sent in by a medical professional or institution (, PA, DOPEMAN, urgent care, hospital, or custodial...) When possible be specific @ -No Did you speak to anyone other than the patient for history (EMS, parent, family, police, friend...)? What history was obtained from this source @ -No Did you review nursing and triage notes (agree or disagree)? Why? @ -I reviewed and agree with nursing and triage notes Were old charts reviewed (outside hosp., previous admission, EMS record, old EKG, old radiological studies, urgent care reports/EKG's, custodial records)? Report findings @ -Old EKG is reviewed Differential Diagnosis (chest pain, altered mental status, abdominal pain women, abdominal pain men, vaginal bleeding, weakness, fever, dyspnea, syncope, head ache, dizziness, GI bleed, back pain, seizure, CVA, palpatations, mental health)? @ -MDM Differential Dyspnea: Coronary syndrome, arrhythmia, tamponade, asthma, COPD, pulmonary embolism, pneumonia, pneumothorax, pulmonary effusion, anaphylaxis, diabetic ketoacidosis, flailed chest, pulmonary contusion, diaphragmatic rupture, anemia, neuromuscular this is not meant to be an all-inclusive list. EKG interpreted by me (3pts min.). @ -As above X-rays interpreted by me (1pt min.). @ -Yes, no acute process CT interpreted by me (1pt min.). @ -No, radiologist report is reviewed. Negative CT angiogram of the chest. No evidence of pulmonary embolism. No suspicious pulmonary mass. No adverse change compared to old exam. U/S interpreted by me (1pt. min.). @ -No, radiologist report is reviewed. There is an oval-shaped solid density which is hypervascular consistent with axillary lymph node. No fluid collection seen What testing was considered but not performed or refused? (CT, X-rays, U/S, labs)? Why? @ -None What meds were considered but not given or refused? Why? @ -I offered the patient Solu-Medrol, she declined as she "does not like steroids". Did you discuss the management of the patient with other professionals (professionals i.e. , PA, DOPEMAN, lab, RT, psych nurse, group social worker, magneto repairer, teacher, information systems security officer, immigration case manager)? Give summary @ -No Was smoking cessation discussed for >3mins.? @ -No Was critical care preformed (if so, how long)? @ -No Were there social determinants of health that impacted care today? How? (Homelessness, low income, unemployed, alcoholism, drug addiction, transp ortation, low edu. Level, literacy, decrease access to med. care, long term, rehab)? @ -No Was there de-escalation of care discussed even if they declined (Discuss DNR or withdrawal of care, Hospice)? DNR status @ -No What co-morbidities impacted this encounter? (DM, HTN, Smoking, COPD, CAD, Cancer, CVA, ARF, Chemo, Hep., AIDS, mental health diagnosis, sleep apnea, morbid obesity)? @ -None Was patient admitted / discharged? Hospital course, mention meds given and route, prescriptions, significant lab abnormalities, going to OR and other pertinent info. @ -Patient is a 41-year-old female presenting with chief complaint of dyspnea. Dyspnea has been ongoing since she was diagnosed with Covid on 07/05. Patient also notes a new painless bump to the left axilla found today. On physical examination there are diffuse expiratory wheezes. I offered the patient Solu- Medrol, she declined as she does not like the way steroids make her feel. She was given a breathing treatment. Laboratory shows no leukocytosis or anemia. CMP is unremarkable. D-dimer is 1.04. Troponin is less than 0.012. EKG showed T-wave inversion in leads 3 and aVF consistent with previous EKG. CTA of the chest is negative for pulmonary embolism or other acute process. Ultrasound of the left axilla shows enlarged lymph node. Urine shows signs of contamination, sent for culture. HCG is negative. Patient is educated on these findings. She is offered steroids again, patient agrees to a Medrol Dosepak but continues to decline steroid dose here in the ER. She is of sound mind and body and able to make her own decisions. Discharged home. Follow-up with PCP. Report back to ER with any new or worsening symptoms. Discussed return parameters and answered all questions. Patient conveyed verbal understanding and agreed to the plan. I discussed this case in detail with my attending Dr. Larose Undiagnosed new problem with uncertain prognosis? @ -No Drug Therapy requiring intensive monitoring for toxicity (Heparin, Nitro, Insulin, Cardizem)? @ -No Were any procedures done? @ -No Diagnosis/symptom? @ -Asthma exacerbation Acute, or Chronic, or Acute on Chronic? @ -Acute on chronic Uncomplicated (without systemic symptoms) or Complicated (systemic symptoms)? @ -Uncomplicated Side effects of treatment? @ -No Exacerbation, Progression, or Severe Exacerbation? @ -Exacerbation Poses a threat to life or bodily function? How? (Chest pain, USA, MO, pneumonia, PE, COPD, DKA, ARF, appy, cholecystitis, CVA, Diverticulitis, Homicidal, Suic idal, threat to staff... and all critical care pts) @ -Unlikely - Lab Data Result diagrams: 07/25/22 14:01 07/25/22 14:01 Lab Results 07/25/22 07/25/22 07/25/22 Range/Units 14: 14: 14:01 WBC 9.1 (3.8-10.6) k/uL RBC 4.16 (3.80-5.40) m/uL Hgb 12.4 (11.4-16.0) gm/dL Hct 37.2 (34.0-46.0) % MCV 89.3 (80.0-100.0) fL MCH 29.8 (25.0-35.0) pg MCHC 33.4 (31.0-37.0) g/dL RDW 13.7 (11.5-15.5) % Plt Count 317 (150-450) k/uL MPV 7.2 Neutrophils % 70 % Lymphocytes % 22 % Monocytes % 5 % Eosinophils % 2 % Basophils % 1 % Neutrophils # 6.3 (1.3-7.7) k/uL Lymphocytes # 2.0 (1.0-4.8) k/uL Monocytes # 0.4 (0-1.0) k/uL Eosinophils # 0.1 (0-0.7) k/uL Basophils # 0.1 (0-0.2) k/uL PT 11.1 (9.0-12.0) sec INR 1.1 (<1.2) APTT 24.7 (22.0-30.0) sec D-Dimer 1.04 H (<0.60) mg/L FEU Sodium (137-145) mmol/L Potassium (3.5-5.1) mmol/L Chloride (98-107) mmol/L Carbon Dioxide (22-30) mmol/L Anion Gap mmol/L BUN (7-17) mg/dL Creatinine (0.52-1.04) mg/dL Est GFR (CKD-EPI)AfAm (>60 ml/min/1.73 sqM) Est GFR (CKD-EPI)NonAf (>60 ml/min/1.73 sqM) Glucose (74-99) mg/dL Plasma Lactic Acid Quan (0.7-2.0) mmol/L Calcium (8.4-10.2) mg/dL Magnesium (1.6-2.3) mg/dL Total Bilirubin (0.2-1.3) mg/dL AST (14-36) U/L ALT (4-34) U/L Alkaline Phosphatase (38-126) U/L Troponin I (0.000-0.034) ng/mL Total Protein (6.3-8.2) g/dL Albumin (3.5-5.0) g/dL Urine Color Yellow Urine Appearance Cloudy H (Clear) Urine pH 5.0 (5.0-8.0) Ur Specific [place] 1.027 (1.001-1.035) Urine Protein Trace H (Negative) Urine Glucose (UA) Negative (Negative) Urine Ketones 2+ H (Negative) Urine Blood Small H (Negative) Urine Nitrite Negative (Negative) Urine Bilirubin Negative (Negative) Urine Urobilinogen <2.0 (<2.0) mg/dL Ur Leukocyte Esterase Trace H (Negative) Urine RBC 3 (0-5) /hpf Urine WBC 5 (0-5) /hpf Urine WBC Clumps Rare H (None) /hpf Ur Squamous Epith Cells 19 H (0-4) /hpf Urine Bacteria Many H (None) /hpf Urine Mucus Many H (None) /hpf Urine HCG, Qual (Not Detectd) 07/25/22 07/25/22 07/25/22 Range/Units 14:01 14:01 14:01 WBC (3.8-10.6) k/uL RBC (3.80-5.40) m/uL Hgb (11.4-16.0) gm/dL Hct (34.0-46.0) % MCV (80.0-100.0) fL MCH (25.0-35.0) pg MCHC (31.0-37.0) g/dL RDW (11.5-15.5) % Plt Count (150-450) k/uL MPV Neutrophils % % Lymphocytes % % Monocytes % % Eosinophils % % Basophils % % Neutrophils # (1.3-7.7) k/uL Lymphocytes # (1.0-4.8) k/uL Monocytes # (0-1.0) k/uL Eosinophils # (0-0.7) k/uL Basophils # (0-0.2) k/uL PT (9.0-12.0) sec INR (<1.2) APTT (22.0-30.0) sec D-Dimer (<0.60) mg/L FEU Sodium 138 (137-145) mmol/L Potassium 4.1 (3.5-5.1) mmol/L Chloride 107 (98-107) mmol/L Carbon Dioxide 22 (22-30) mmol/L Anion Gap 9 mmol/L BUN 11 (7-17) mg/dL Creatinine 0.61 (0.52-1.04) mg/dL Est GFR (CKD-EPI)AfAm >90 (>60 ml/min/1.73 sqM) Est GFR (CKD-EPI)NonAf >90 (>60 ml/min/1.73 sqM) Glucose 90 (74-99) mg/dL Plasma Lactic Acid Quan 1.3 (0.7-2.0) mmol/L Calcium 8.5 (8.4-10.2) mg/dL Magnesium 2.3 (1.6-2.3) mg/dL Total Bilirubin 0.6 (0.2-1.3) mg/dL AST 27 (14-36) U/L ALT 19 (4-34) U/L Alkaline Phosphatase 58 (38-126) U/L Troponin I (0.000-0.034) ng/mL Total Protein 7.8 (6.3-8.2) g/dL Albumin 4.5 (3.5-5.0) g/dL Urine Color Urine Appearance (Clear) Urine pH (5.0-8.0) Ur Specific [place] (1.001-1.035) Urine Protein (Negative) Urine Glucose (UA) (Negative) Urine Ketones (Negative) Urine Blood (Negative) Urine Nitrite (Negative) Urine Bilirubin (Negative) Urine Urobilinogen (<2.0) mg/dL Ur Leukocyte Esterase (Negative) Urine RBC (0-5) /hpf Urine WBC (0-5) /hpf Urine WBC Clumps (None) /hpf Ur Squamous Epith Cells (0-4) /hpf Urine Bacteria (None) /hpf Urine Mucus (None) /hpf Urine HCG, Qual Not Detected (Not Detectd) 07/25/22 Range/Units 14:01 WBC (3.8-10.6) k/uL RBC (3.80-5.40) m/uL Hgb (11.4-16.0) gm/dL Hct (34.0-46.0) % MCV (80.0-100.0) fL MCH (25.0-35.0) pg MCHC (31.0-37.0) g/dL RDW (11.5-15.5) % Plt Count (150-450) k/uL MPV Neutrophils % % Lymphocytes % % Monocytes % % Eosinophils % % Basophils % % Neutrophils # (1.3-7.7) k/uL Lymphocytes # (1.0-4.8) k/uL Monocytes # (0-1.0) k/uL Eosinophils # (0-0.7) k/uL Basophils # (0-0.2) k/uL PT (9.0-12.0) sec INR (<1.2) APTT (22.0-30.0) sec D-Dimer (<0.60) mg/L FEU Sodium (137-145) mmol/L Potassium (3.5-5.1) mmol/L Chloride (98-107) mmol/L Carbon Dioxide (22-30) mmol/L Anion Gap mmol/L BUN (7-17) mg/dL Creatinine (0.52-1.04) mg/dL Est GFR (CKD-EPI)AfAm (>60 ml/min/1.73 sqM) Est GFR (CKD-EPI)NonAf (>60 ml/min/1.73 sqM) Glucose (74-99) mg/dL Plasma Lactic Acid Quan (0.7-2.0) mmol/L Calcium (8.4-10.2) mg/dL Magnesium (1.6-2.3) mg/dL Total Bilirubin (0.2-1.3) mg/dL AST (14-36) U/L ALT (4-34) U/L Alkaline Phosphatase (38-126) U/L Troponin I <0.012 (0.000-0.034) ng/mL Total Protein (6.3-8.2) g/dL Albumin (3.5-5.0) g/dL Urine Color Urine Appearance (Clear) Urine pH (5.0-8.0) Ur Specific [place] (1.001-1.035) Urine Protein (Negative) Urine Glucose (UA) (Negative) Urine Ketones (Negative) Urine Blood (Negative) Urine Nitrite (Negative) Urine Bilirubin (Negative) Urine Urobilinogen (<2.0) mg/dL Ur Leukocyte Esterase (Negative) Urine RBC (0-5) /hpf Urine WBC (0-5) /hpf Urine WBC Clumps (None) /hpf Ur Squamous Epith Cells (0-4) /hpf Urine Bacteria (None) /hpf Urine Mucus (None) /hpf Urine HCG, Qual (Not Detectd) Disposition Clinical Impression: Asthma exacerbation Disposition: HOME SELF-CARE Condition: Good Instructions (If sedation given, give patient instructions): Asthma (ED), Lymph adenopathy (ED) Additional Instructions: Follow-up with PCP, if needed some suggestions have been provided for you. Report back to ER with any new or worsening symptoms. Take medication as prescribed. Prescriptions: methylPREDNISolone Dose Pack [Medrol Dose Pack] 4 mg PO DIRECTED #1 packet Is patient prescribed a controlled substance at d/c from ED?: No Referrals: None,Stated [Primary Care Provider] - 1-2 days Mariel Isabel MD [REFERRING] - 1-2 days Leann Aleman MD [STAFF PHYSICIAN] - 1-2 days Time of Disposition: 17:09
[2022-07-25 14:17] LABS: Basophils # (A) 0.1 k/uL (0-0.2); Basophils % (A) 1 %; Eosinophils # (A) 0.1 k/uL (0-0.7); Eosinophils % (A) 2 %; HCT 37.2 % (34.0-46.0); HGB 12.4 gm/dL (11.4-16.0); Lymphocytes % (A) 22 %; MCH 29.8 pg (25.0-35.0); MCHC 33.4 g/dL (31.0-37.0); MCV 89.3 fL (80.0-100.0); Mean Platelet Volume 7.2; Monocytes # (A) 0.4 k/uL (0-1.0); Monocytes % (A) 5 %; Neutrophils # (A) 6.3 k/uL (1.3-7.7); Neutrophils % (A) 70 %; Platelet Count 317 k/uL (150-450); RBC 4.16 m/uL (3.80-5.40); RDW 13.7 % (11.5-15.5); WBC 9.1 k/uL (3.8-10.6)
[2022-07-25 14:31] LABS: ALT 19 U/L (4-34); AST 27 U/L (14-36); African American GFR (CKD) >90 (>60 ml/min/1.73 sqM); Albumin 4.5 g/dL (3.5-5.0); Alkaline Phosphatase 58 U/L (38-126); Anion Gap 9 mmol/L; Appearance,Urine Cloudy (Clear); Bacteria,Urine Many /hpf; Bilirubin,Urine Negative (Negative); Blood Urea Nitrogen 11 mg/dL (7-17); Blood,Urine Small (Negative); Calcium 8.5 mg/dL (8.4-10.2); Carbon Dioxide 22 mmol/L (22-30); Chloride 107 mmol/L (98-107); Color,Urine Yellow; Glucose 90 mg/dL (74-99); Glucose,Urine (UA) Negative (Negative); Ketones,Urine 2+ (Negative); Leukocyte Esterase,Urine Trace (Negative); Magnesium 2.3 mg/dL (1.6-2.3); Mucus,Urine Many /hpf; Nitrite,Urine Negative (Negative); Non-African American GFR(CKD) >90 (>60 ml/min/1.73 sqM); Potassium 4.1 mmol/L (3.5-5.1); Protein,Urine Trace (Negative); RBC,Urine 3 /hpf (0-5); Sodium 138 mmol/L (137-145); Specific Gravity,Urine 1.027 (1.001-1.035); Squamous Epithelial Cell,Urine 19 /hpf (0-4); Total Bilirubin 0.6 mg/dL (0.2-1.3); Total Protein 7.8 g/dL (6.3-8.2); Urobilinogen,Urine <2.0 mg/dL (<2.0); WBC,Urine 5 /hpf (0-5)
[2022-07-25 14:37] LABS: INR 1.1 (<1.2); Partial Thromboplastin Time 24.7 sec (22.0-30.0); Prothrombin Time 11.1 sec (9.0-12.0)
--- NOTE | 2022-07-25 15:18 | XR ---
EXAMINATION TYPE: XR chest 2V DATE OF EXAM: 07/25/2022 COMPARISON: 09/03/2021 HISTORY: Difficulty breathing TECHNIQUE: 2 view FINDINGS: Heart is normal. Lungs are clear. Diaphragm is normal. Bony thorax is intact. The pulmonary vascularity is normal. IMPRESSION: Normal chest. No adverse change.
[2022-07-25 15:31] VITALS: RESP 16
--- NOTE | 2022-07-25 15:55 | CT ---
EXAMINATION TYPE: CT chest angio for PE DATE OF EXAM: 07/25/2022 COMPARISON: 09/03/2021 HISTORY: JAX, elevated d-dimer. Hx Covid in June. CT DLP: 355.5 mGycm Automated exposure control for dose reduction was used. CONTRAST: Performed with IV Contrast, patient injected with 100 mL of Isovue 370. Images obtained from the thoracic inlet to the diaphragm with the IV contrast. There are Three-D post processed images. The lungs are clear of consolidation. No evidence of a pulmonary mass. No pleural effusion. Heart siz e is within normal limits. There is no mediastinal adenopathy. There are no hilar masses. Thoracic aorta is intact. No aneurysm or dissection. No evidence of filling defect in the pulmonary arteries. The thoracic spine is intact. No compression fracture. Sternum is intact. IMPRESSION: Negative CT angiogram of the chest. No evidence of pulmonary embolism. No suspicious pulmonary mass. No adverse change compared to old exam.
--- NOTE | 2022-07-25 16:32 | US ---
EXAMINATION TYPE: US axilla LT DATE OF EXAM: 07/25/2022 COMPARISON: NONE CLINICAL HISTORY: painless lump. At patients area of concern is a prominent lymph node measuring 2.2 x 0.1 x 1.3cm Patient is recovering from Covid, she tested positive 07-06-22. IMPRESSION: There is oval-shaped solid density which is hypervascular consistent with axillary lymph node. No fluid collection seen.
[2022-07-25 17:38] VITALS: BP 120/70; PULSE 60
== END 2022-07-25 17:38 | disposition home or self-care (01) ==
LOC: EC 13:03
DX: J45.901 Unspecified asthma with (acute) exacerbation (principal); F12.90 Cannabis use, unspecified, uncomplicated; Z79.899 Other long term (current) drug therapy; Z79.82 Long term (current) use of aspirin; Z88.1 Allergy status to other antibiotic agents; Z88.2 Allergy status to sulfonamides
CPT/HCPCS: 36415; 94640; 93005; 85379; 80053; 83605; 83735; 84484; 85025; 85610; 85730; 81001; 81025; 71046; 76882; 71275; 99285; Q9967

== ENCOUNTER → 2022-09-23 | Outpatient (CLI) | payer MEDICARE, OTHER ==
--- NOTE | 2022-09-24 07:46 | MM ---
Reason for Exam: Screening (asymptomatic). Last mammogram was performed 4 year(s) and 2 month(s) ago. Patient History: Menarche at age 9. First Full-Term at age 18. 2010, Excisional Biopsy on the Left side. Maternal aunt had breast cancer. Maternal aunt had breast cancer. Maternal aunt had breast cancer. Last menstrual period: 08/25/2022 Risk Values: Margarita 5 year model risk: 1.1%. NCI Lifetime model risk: 11.6%. Prior Study Comparison: 01/26/2011 Bilateral Diagnostic Mammogram, Unknown. 04/16/2015 Bilateral Diagnostic Mammogram, Unknown. 07/27/2018 Bilateral Screening Mammogram, [facility]. Tissue Density: The breast tissue is heterogeneously dense. This may lower the sensitivity of mammography. Findings: Analyzed By CAD. Right: There is no suspicious group of microcalcifications or new suspicious mass in either breast. Left: Mass measuring 9 mm 6.0 cm from the nipple slightly inferior cc and posterior nipple line on MLO view. Overall Assessment: Incomplete: need additional imaging evaluation, BI-RAD 0 Management: Diagnostic Mammogram of the left breast. A clinical breast exam by your physician is recommended on an annual basis and results should be correlated with mammographic findings. [facility] will attempt to contact patient to return for supplemental views and ultrasound if indicated. Electronically signed and approved by: Aneudy Barreto DO
== END | disposition home or self-care (01) ==
LOC: RADMAMWWP 13:47
PROVIDERS: ATTEND Internal Medicine Geriatric Medicine
DX: Z12.31 Encounter for screening mammogram for malignant neoplasm of breast (principal); Z80.3 Family history of malignant neoplasm of breast
CPT/HCPCS: 77063; 77067

== ENCOUNTER → 2022-09-23 | Outpatient (CLI) | payer MEDICARE, OTHER ==
--- NOTE | 2022-09-23 14:56 | XR ---
EXAMINATION TYPE: XR chest 2V DATE OF EXAM: 09/23/2022 2:50 PM COMPARISON: Chest radiographs from 07/25/2022 TECHNIQUE: XR chest 2V Frontal and lateral views of the chest. CLINICAL INDICATION:Female, 41 years old with history of R06.02; FINDINGS: Lungs/Pleura: There is no evidence of pleural effusion, focal consolidation, or pneumothorax. Pulmonary vascularity: Unremarkable. Heart/mediastinum: Cardiomediastinal silhouette is unremarkable. Musculoskeletal: No acute osseous pathology. IMPRESSION: No acute cardiopulmonary disease/process. No significant change from prior exam.
== END | disposition home or self-care (01) ==
LOC: RADXRMAIN 14:20
PROVIDERS: ATTEND Internal Medicine
DX: R06.02 Shortness of breath (principal)
CPT/HCPCS: 71046

== ENCOUNTER → 2022-09-25 | Outpatient (CLI) | payer MEDICARE, OTHER ==
--- NOTE | 2022-09-25 08:50 | USB ---
Reason for Exam: Additional evaluation requested from abnormal screening. Patient History: Menarche at age 9. First Full-Term at age 18. 2011, Excisional Biopsy on the Left side. Maternal aunt had breast cancer. Maternal aunt had breast cancer. Maternal aunt had breast cancer. Risk Values: Margarita 5 year model risk: 1.1%. NCI Lifetime model risk: 11.6%. Prior Study Comparison: 04/16/2015 Bilateral Diagnostic Mammogram, Unknown. 07/27/2018 Bilateral Screening Mammogram, [facility]. 09/23/2022 Bilateral MG 3D screening mammo w/cad, [facility]. Findings: The lower section of the breast of the left breast, the axilla of the left breast and the retroareolar of the left breast were scanned. Targeted ultrasound of the left breast from 3-10 o'clock was performed with additional evaluation of the nipple and axilla. There is an irregular hypoechoic mass with angular margins and no posterior acoustic features within the left breast at 9:00 6 cm from the nipple measuring 0.6 x 0.5 x 0.6 cm. Benign-appearing lymph nodes within the left axilla. Overall Assessment: Suspicious, BI-RAD 4 Management: Ultrasound Core Biopsy of the left breast. A clinical breast exam by your physician is recommended on an annual basis and results should be correlated with mammographic findings. This exam should not preclude additional follow-up of suspicious palpable abnormalities. Results were given to the patient verbally at the time of exam. Electronically signed and approved by: Yannick Rogel D.O.
== END | disposition home or self-care (01) ==
LOC: RADMAMWWP 08:04
PROVIDERS: ATTEND Internal Medicine Geriatric Medicine
DX: R92.8 Other abnormal and inconclusive findings on diagnostic imaging of breast (principal); Z80.3 Family history of malignant neoplasm of breast

== ENCOUNTER → 2022-09-30 | Day surgery (SDC) | payer MEDICARE, OTHER ==
--- NOTE | 2022-10-07 09:01 | MM ---
Reason for Exam: Post Procedure Mammogram. Last screening mammogram was performed less than 1 month ago. Patient History: Menarche at age 9. First Full-Term at age 18. Patient has history of breast feeding. 2010, Excisional Biopsy on the Left side. Maternal aunt had breast cancer. Maternal aunt had breast cancer. Maternal aunt had breast cancer. Risk Values: Margarita 5 year model risk: 1.1%. NCI Lifetime model risk: 11.6%. Prior Study Comparison: 04/16/2015 Bilateral Diagnostic Mammogram, Unknown. 07/27/2018 Bilateral Screening Mammogram, [facility]. 09/23/2022 Bilateral MG 3D screening mammo w/cad, [facility]. Tissue Density: Left: The breast tissue is heterogeneously dense. This may lower the sensitivity of mammography. Pathology Description: Location: 9 o'clock. Needle Type: Celero Cores: 3 Gauge: 12 The procedure of ultrasound guided core biopsy was explained to the patient. Benefits, alternatives, and risks were discussed. An informed consent was then obtained. The patient was placed in supine positioning for imaging and for the procedure. The overlying skin was prepped and draped in usual sterile fashion. Lidocaine buffered with bicarbonate was used as anesthetic into the skin and subcutaneous tissue up to area of concern in the left 9:00 breast Under ultrasound guidance, a 12-gauge vacuum assisted biopsy gun device was used to obtain 3 core samples. Following this, a biopsy clip was left in lesion. The patient tolerated the procedure well without any immediate complication. The patient was kept in the radiology department for short stay after the procedure and then discharged home in stable condition. Postprocedure mammogram: The patient was transferred to mammography for physician ordered post procedure mammogram for clip placement verification. Impression: Successful, uncomplicated ultrasound guided core biopsy of area of concern in the left 9:00 breast, full pathology results to follow. Pathology Results: Result: Benign, Fibroadenoma. LEFT BREAST, NINE O'CLOCK ULTRASOUND GUIDED NEEDLE CORE BIOPSY: Fibroadenoma. Overall Assessment: Benign Assessment: MG diagnostic mammo LT wo CAD. - Left: Benign, BI-RAD 2. Management: Diagnostic Breast Ultrasound of the left breast in 6 months. Electronically signed and approved by: J Carlos Michael M.D. Radiologis
== END ==
LOC: RADUSWWP 10:17
PROVIDERS: ATTEND Surgery
DX: D24.2 Benign neoplasm of left breast (principal); Z80.3 Family history of malignant neoplasm of breast
CPT/HCPCS: 88305; 77065; 19083; A4648

== ENCOUNTER → 2022-10-09 | Outpatient (CLI) | payer MEDICARE, OTHER ==
[2022-10-09 09:13] VITALS: BP 116/74; PULSE 79; RESP 18; TEMP 98.1
--- NOTE | 2022-10-09 10:08 | P.GSHP ---
History of Present Illness H&P Date: 10/09/22 Chief Complaint: fibroadenoma left breast Gela is a 41 year old white female seen in consultation for Dr. Charlton regarding a fibroadenoma of the left breast. [place] [address]. An area of concern was noted in the left breast which was 9 mm in size 6 mm from the nipple. She subsequently underwent an ultrasound of the left breast. The patient underwent [place] [address]. The area of concern was located in the 9 o'clock position was approximately 0.6 x 0.5 cm in size. Ultrasound core biopsy revealed a fibroadenoma. This was felt to be benign concordant and repeat left breast ultrasound and mammogram in 6 months is recommended. The patient used to live in [place]. In 2010 her physician felt a lump in her breast which she subsequently underwent operative resection for, this was in the left breast in the same area where the recent fibroadenoma was diagnosed. We do not have available the pathology report at this time, although the patient was told that this was benign. The patient does not feel any lumps masses or nodules of concern in either breast. She is not complaining of any nipple discharge or skin changes. She is not complaining of any pain in her breasts. Tolerated the biopsy without difficulty. Her menstrual periods are regular, notes increasing discomfort in her breast prior to her menstrual cycle. Her radiographs have been personally reviewed. Caffeine: 3 cups/day nicotine: none chocolate: weekly BCP: 3 years in past hormones: none Family History: (13 siblings on maternal side, 7 females 4 with cancer) maternal aunt: breast cancer in her 40's maternal aunt: breast cancer metastatic disease maternal aunt: bilateral breast removed materanl aunt: breast cancer paternal aunt: lung cancer patient: skin cancer left leg, melanoma Hormonal History: menarche: 9 M1, breast fed: yes, first born at 18 periods regular hormones:none Surgical History: right knee hip replacement right left breast biopsy lipoma on back skin cancer left leg; melanoma Medical History: multiple sclerosis 2010 asthma arthritis optic neuritis Social History: nicotine: none alcohol: occasional drugs: Marijuana daily smokes it - Constitutional Constitutional: Denies chills, Denies fever - EENT Eyes: bilateral as per HPI Ears: deny: decreased hearing, tinnitus Ears, nose, mouth and throat: Denies headache, Denies sore throat - Breasts Breasts: bilateral: as per HPI - Cardiovascular Comment: 2010 [place] Cardiovascular: Reports chest pain, Denies shortness of breath - Respiratory Comment: asthma - Gastrointestinal Gastrointestinal: Denies abdominal pain, Denies diarrhea, Denies nausea, Denies vomiting - Genitourinary (Female) Genitourinary: Denies dysuria, Denies hematuria - Menstruation Menstruation: Reports as per HPI - Musculoskeletal Musculoskeletal: Reports as per HPI - Integumentary Integumentary: Reports pruritus, Reports rash - Neurological Neurological: Reports numbness - Psychiatric Psychiatric: Reports anxiety - Endocrine Endocrine: Reports weight change - Hematologic/Lymphatic Comment: none - Allergic/Immunologic Allergic/Immunologic: Reports as per HPI Past Medical History Past Medical History: Asthma Additional Past Medical History / Comment(s): MS, arthritis History of Any Multi-Drug Resistant Organisms: None Reported Past Surgical History: Joint Replacement Additional Past Surgical History / Comment(s): Lumpectomy left breats. Right hip repalcement 2021 Past Anesthesia/Blood Transfusion Reactions: No Reported Reaction Past Psychological History: No Psychological Hx Reported Smoking Status: Never smoker Past Alcohol Use History: Occasional Past Drug Use History: Marijuana Additional Drug Use History / Comment(s): marijuana on occassion Medications and Allergies Home Medications Medication Instructions Recorded Confirmed Type Albuterol Sulfate [Proventil Hfa] 2 puff INHALATION RT-Q4H PRN 08/29/21 10/09/22 History Ergocalciferol [Vitamin D2 (1250 1,250 mcg PO WE 08/29/21 10/09/22 History Mcg = 30927 Iu)] Ibuprofen [Motrin] 800 mg PO Q8H PRN 08/29/21 10/09/22 History L.acidoph,Paracasei, B.lactis 1 cap PO DAILY 08/29/21 10/09/22 History [Probiotic] Allergies Allergy/AdvReac Type Severity Reaction Status Date / Time methylprednisolone Allergy Itching Verified 10/09/22 09:09 [From Solu-Medrol] Sulfa (Sulfonamide Allergy Rash/Hives Verified 10/09/22 09:09 Antibiotics) Surgical - Exam Vital Signs Temp Pulse Resp BP 98.1 F 79 18 116/74 10/09/22 09:10 10/09/22 09:10 10/09/22 09:10 10/09/22 09:10 BMI: 38.4 - General moderate distress - Eyes normal ocular movement - Neck trachea midline - Respiratory normal respiratory effort - Cardiovascular Rhythm: regular Heart Sounds: normal: S1, S2 - Abdomen Abdomen: soft, non tender, no guarding, no rigid, no rebound - Integumentary normal turgor - Neurologic no disoriented, no combative - Musculoskeletal normal gait - Psychiatric oriented to time, oriented to person, oriented to place, speech is normal, memory intact Breast Exam: BRA: 38D Inspection: Bilateral grade 3 ptosis Palpation: Weight breasts: Multiple positional exam fibrocystic changes no dominant masses or nodules of concern Right axilla: No adenopathy of concern Left breast: Multi-positional exam fibrocystic changes no discrete dominant masses or nodules of concern, mild ecchymosis medial aspect related to recent core biopsy Left axilla: No adenopathy of concern Results Mammogram and ultrasound personally reviewed Assessment and Plan Assessment: Impression: Asthma Multiple sclerosis History of seizures History of myocardial infarction in the past Hip replacement Patient with a biopsy-proven left breast fibroadenoma/prior lumpectomy of the left side pathology results are not available at this time this was felt to be benign 2010 in [place] Strong family history of cancer Plan: Repeat left breast mammogram and ultrasound in 6 months Patient is interested in getting genetic testing done we'll see her back after this is completed Margarita risk 1.1% 5 year risk of breast cancer We have discussed that the pathology on the fibroadenoma is not cancer but benign. The patient is asymptomatic from this at the present time. Therefore rather than resection at this time we are going to follow it conservatively. I would like to obtain the results of her pathology from 2010 she is going to obtain this for us. If anything changes we will be happy to see the patient sooner CC: Dr. Charlton
== END ==
LOC: WWCWWP 08:58
PROVIDERS: ATTEND Surgery
DX: D24.2 Benign neoplasm of left breast (principal); R92.8 Other abnormal and inconclusive findings on diagnostic imaging of breast; Z85.3 Personal history of malignant neoplasm of breast; Z80.3 Family history of malignant neoplasm of breast; J45.909 Unspecified asthma, uncomplicated; G35 Multiple sclerosis; I25.2 Old myocardial infarction; M19.90 Unspecified osteoarthritis, unspecified site; N60.12 Diffuse cystic mastopathy of left breast; Z79.1 Long term (current) use of non-steroidal anti-inflammatories (NSAID); Z80.1 Family history of malignant neoplasm of trachea, bronchus and lung; Z85.820 Personal history of malignant melanoma of skin; Z86.018 Personal history of other benign neoplasm; Z88.1 Allergy status to other antibiotic agents; Z88.2 Allergy status to sulfonamides; Z96.641 Presence of right artificial hip joint; Z88.8 Allergy status to other drugs, medicaments and biological substances

== ENCOUNTER → 2024-08-10 | Outpatient (CLI) | payer MEDICARE, OTHER ==
--- NOTE | 2024-08-10 15:14 | CT ---
CT brain with and without contrast HISTORY: Headache. COMPARISON: None. TECHNIQUE: Multiple axial images are obtained from the skull base to vertex before and after the unev entful administration of nonionic IV contrast material. FINDINGS: The ventricles, basal cisterns and sulci over convexities are within normal limits and there is no ma ss effect or shift in midline structures. No abnormal density is seen throughout the brain parenchyma. Following contrast administration, there is no pathological enhancement. Posterior fossa including the brainstem, fourth ventricle and cerebellar pontine angles appear normal . The intraorbital contents appear normal with symmetric. Visualized paranasal sinuses and mastoid air cells are well aerated. IMPRESSION: No significant abnormality seen. [facility], , 08/10/2024 3:12 PM
== END | disposition home or self-care (01) ==
LOC: RADCTMAIN 14:25
PROVIDERS: ATTEND Internal Medicine Geriatric Medicine
DX: R51.9 Headache, unspecified (principal)
CPT/HCPCS: 70470; Q9967